=== PATIENT | male | born 1960 | race Caucasian/White ===

== ENCOUNTER 2016-04-26 11:58 | Emergency (ER) | payer OTHER ==
[~2016-04-26] VITALS: Ht 172.7 cm; Wt 102.7 kg
[~2016-04-26 11:58] MED LIST: PERC5TAB12 PO; ZOFR4TAB3 SL
[2016-04-26 12:02] VITALS: BP 130/81; PULSE 76; RESP 16; TEMP 98.1; O2SAT 97
--- NOTE | 2016-04-26 12:11 | PD ---
HPI . left forearm laceration earlier today Chief Complaint: Laceration/Skin Injury Time Seen by Provider: 12:10 Travel History International Travel<30 days: No Contact w/Intl Traveler<30days: No Traveled to known affect area: No History of Present Illness HPI 55 yr old male here after sustaining a laceration to his left forearm while installing new window in his house. He was using a razor blade when it slipped and cut his left forearm. He is here for lac repair. He admits to some pain in the area. He has not been able to stop the bleeding. A dressing was applied in the waiting area. He is up to date on his tetanus. He is accompanied by his . He has no other concerns. PFSH Past Medical History Hx Anticoagulant Therapy: No Anemia: Yes (APLASTIC) Arthritis: Yes Diminished Hearing: No Herniated Disk: Yes (C5-C6) Musculoskeletal: Yes (BULGING DISC) Immunizations Current: Yes Migraines: Yes Past Surgical History Appendectomy: Yes Joint Replacement: Yes (LEFT HIP 1997) Tonsillectomy: Yes Social History Alcohol Use: No Tobacco Use: No Substance Use: No Allergies-Medications (Allergen,Severity, Reaction): Coded Allergies: Acetaminophen (Verified Allergy, Severe, HIVES, 04/26/16) Reported Meds & Prescriptions Reported Meds & Active Scripts Active Active Prescriptions or Reported Medications Unobtainable Review of Systems General / Constitutional: No: Fever Eyes: No: Visual changes HENT: No: Headaches Cardiovascular: No: Chest Pain or Discomfort Respiratory: No: Shortness of Breath Gastrointestinal: No: Abdominal Pain Genitourinary: No: Dysuria Musculoskeletal: No: Pain Skin: Positive Other (left forearm laceration ), No Rash Neurologic: No: Weakness Psychiatric: No: Depression Endocrine: No: Polydipsia Hematologic/Lymphatic: No: Easy Bruising Physical Exam Narrative GENERAL: AAO x 3, no acute distress, Well-nourished, well-developed patient. SKIN: Warm and dry. No visible rashes or bruising. left medial forearm with 5 cm laceration to the ulnar area without any evidence of bone, tendon or vessel injury. Cut is clean without debris. HEAD: Normocephalic and atraumatic. EYES: No scleral icterus. No injection or drainage. ENT: No nasal drainage noted. Mucous membranes pink. Airway patent. NECK: Supple, trachea midline. No JVD. CARDIOVASCULAR: Regular rate and rhythm without murmurs, gallops, or rubs. RESPIRATORY: Breath sounds equal bilaterally. No accessory muscle use. No rhonchi or rales. GASTROINTESTINAL: Abdomen soft, non-tender, nondistended. EXTREMITIES: No cyanosis or edema. Full ROM Of left hand digits. Fitness Plan Coordinator strength is normal. BACK: Nontender without obvious deformity. No CVA tenderness. PSYCH: AAO x 3, normal affect. 5 cm left medial forearm (ulnar) Data Data Last Documented VS Vital Signs Date Time Temp Pulse Resp B/P Pulse Ox O2 Delivery O2 Flow Rate FiO2 04/26/16 12:02 98.1 76 16 130/81 97 Orders Lidocaine 1% Inj (50 Ml) (Xylocaine 1% I (04/26/16 12:15) [facility] Medical Decision Making Medical Screen Exam Complete: Yes Emergency Medical Condition: Yes Medical Record Reviewed: Yes Differential Diagnosis left forearm laceration Narrative Course 55 yr old male here after sustaining a laceration to his left forearm while installing new window in his house. He was using a razor blade when it slipped and cut his left forearm. He is here for lac repair. He admits to some pain in the area. He has not been able to stop the bleeding. A dressing was applied in the waiting area. He is up to date on his tetanus. He is accompanied by his . He has no other concerns. Patient seen and examined. He does have a left forearm laceration measuring 5 cm. He is up-to-date on his tetanus vaccine. The wound is clean without any foreign bodies. Laceration was repaired with 10 sutures. Patient tolerated without incident Advised removal of sutures in 7-10 days. Discussed signs of infection and need for follow-up. Advised that he will need to keep this covered at work and change dressings at least twice a day while at work, since he is outdoors. Patient verbalized understanding of instructions, questions were answered, and thanked me for their care. I advised them if their condition worsens, please return to the nearest emergency room for further care. Procedures Procedure Narrative LACERATION LOCATION: Left forearm LENGTH: 5 cm NUMBER OF STITCHES/TRESSA: 10 REPAIR: The area of the laceration was prepped with Betadine and sterilely draped. The laceration was infiltrated with 1% lidocaine. The wound was copiously irrigated and explored without evidence of foreign body, tendon injury or neurovascular injury. The wound was closed using 4-0 Prolene. This was a single layer repair. A sterile dressing was applied. The patient was advised to keep the dressing clean and dry. Patient tolerated the procedure well. Diagnosis Primary Impression: Laceration of forearm without complication Qualified Code: S51.812A - Laceration of forearm without complication, left, initial encounter Patient Instructions: Acute Wound Care (ED), General Instructions, Laceration ( ED) Additional Instructions: Please return to emergency department if your symptoms return or worsen. Follow up with your primary care provider. Take medications as prescribed. [place] for worsening signs of infection which include increased redness, increased warmth, purulent drainage, increased swelling or streaking. Keep this area covered while at work. Wash with soap and water daily. Apply topical antibiotic ointment for the next 2-3 days. While at home leave open to air. The sutures will need to be removed in 7-10 days. ( 10 sutures) If you see any signs of infection, please come in as soon as possible. Med/Other Pt SpecificInfo: No Change to Meds Scripts Unable to Obtain Active Prescriptions or Reported Meds Disposition: 01 DISCHARGE HOME Condition: Stable Oralia Palomares Apr 26, 2016 12:11
[2016-04-26] MEDS ORDERED: LIDOCAINE HCL 1% 50 ML VIAL INFIL ONE (12:15)
== END 2016-04-26 13:01 | disposition home or self-care (01) ==
LOC: PHEFT 11:58
DX: S51.812A Laceration without foreign body of left forearm, initial encounter (principal); D61.9 Aplastic anemia, unspecified; W27.8XXA Contact with other nonpowered hand tool, initial encounter; Y93.H3 Activity, building and construction; Y92.009 Unspecified place in unspecified non-institutional (private) residence as the place of occurrence of the external cause; Y99.8 Other external cause status
CPT/HCPCS: 12002

== ENCOUNTER 2018-02-11 06:49 | Inpatient (IN) ==
[2018-02-11] MEDS ORDERED: Chlorhexidine Gluconate 2% 1 Pack (2 Cloths) TOPICAL ONE (07:45)
[2018-02-11] MEDS ORDERED: Sodium Chlor 0.9% Inj 500 ML IV.CONT ONE (07:45)
[2018-02-11] MEDS ORDERED: Chlorhexidine 4% Topical 120 APPLIC/120 ML Bottle TOPICAL SCH (07:45)
[2018-02-11] MEDS ORDERED: Metoprolol Tartrate 25 MG Tablet PO ONE (07:45)
[2018-02-11] MEDS ORDERED: Sodium Chlor 0.9% Inj 40 ML, Bupivacaine Liposo PF 1.3% Inj 20 ML P-ARTICULR SCH ×2 (08:00)
[2018-02-11] MEDS ORDERED: Vancomycin Inj 1,000 MG in Sodium Chlor 0.9% Inj 250 ML IV.SIG SCH (08:00)
[2018-02-11] MEDS ORDERED: ceFAZolin 2 GM Premix Inj 2 GM/50 ML PIGGYBACK IV.SIG SCH (08:00)
[2018-02-11 08:12] LABS: Bilirubin,Urine Negative (Negative); Clarity,Urine Clear (Clear); Color,Urine Yellow (Yellw/Straw); Glucose,Urine (UA) Negative (Negative); Leukocyte Esterase,Urine Negative (Negative); Nitrite,Urine Negative (Negative); Specific Gravity,Urine 1.024 (1.002-1.035)
[2018-02-11] MEDS ORDERED: Post-op Orders (for Pharmacy) OTHER STA (08:28)
[2018-02-11] MEDS ORDERED: HYDROmorphone PF Inj 1 MG/ML Ampul IV.PUSH PRN (08:28)
[2018-02-11] MEDS ORDERED: Bisacodyl 10 MG Supp RECTAL PRN (08:28)
[2018-02-11] MEDS ORDERED: Zolpidem Tartrate 5 MG Tablet PO PRN (08:28)
[2018-02-11] MEDS ORDERED: SODIUM CHLOR 0.9% IV.SIG SCH (08:30)
[2018-02-11] MEDS ORDERED: Tranexamic Acid Inj 3,000 MG in Sodium Chlor 0.9% Inj 100 ML P-ARTICULR SCH (08:30)
[2018-02-11] MEDS ORDERED: TRANEXAMIC ACID IV.SIG SCH (08:30)
[2018-02-11] MEDS ORDERED: Dexamethasone Inj 20 MG/5 ML Vial IV.PUSH ONE (09:00)
--- NOTE | 2018-02-11 11:47 | P.OP ---
Procedure: PREOPERATIVE DIAGNOSIS: Right hip osteoarthritis. POSTOPERATIVE DIAGNOSIS: Right hip osteoarthritis. PROCEDURE PERFORMED: Right total hip arthroplasty. SURGEON: Dr. Evaristo Alfred M.D. CAN REFORMING MACHINE OPERATOR: APRIL Schroeder. ANESTHESIA: General. ESTIMATED BLOOD LOSS: 250 mL. COMPLICATIONS: None. IMPLANTS USED: Depuy Corail femoral stem 11 [place] Gripsion Cup [] 54 Poly insert liner neutral [] 36 x 54 femoral head [] 36 mm ceramic neck length [] +8.5 JUSTIFICATION: This patient presents to the undersigned at the orthopedic clinic with chief complaints of severe Right hip pain. The pain is severe and constant and interferes with activities of daily living. The patient has failed greater than 3 months of nonoperative conservative treatment to include analgesic and nonsteroidal anti-inflammatory medications, physical therapy, cortisone injections, activity modification, weight loss, home exercise program, and use of ambulatory assistive aids. X-rays of right hip reveal severe osteoarthritis with [id number] joint space narrowing, subchondral sclerosis, subchondral cysts, osteophyte formation with subluxation. The patient was counseled on risks, benefits, and alternatives to a total hip arthroplasty. The risks were discussed, which include, but are not limited to, anesthesia, bleeding, infection, damage to nerves and blood vessels , pain, stiffness, fracture, dislocations, leg length discrepancy, failure of components, blood clots, pulmonary embolus, and even . The patient favored the benefits over the risks, did wish to proceed with surgery. PROCEDURE IN DETAIL: Written consent was obtained. The patient was identified by name, taken to the operating room and placed supine on the operating table. General anesthesia was administered. The patient was preoperative IV antibiotics. The patient right and left feet were placed in the padded traction boots. The right hip and lower extremity was then prepped and draped using isopropyl alcohol, Hibiclens solution and ChloraPrep solution. After a timeout was performed, a longitudinal incision was made over the anterior aspect of the right hip. The fascia ashwin was incised. Dissection was carried over the tensor fascia ashwin beneath the rectus femoris. After exposure of the anterior capsule, a capsulotomy incision was performed. An oscillating saw was used to perform a femoral neck cut. The osteoarthritic femoral head and neck was removed. A 10 blade scalpel was used to excise the labrum. Sequential reaming of the acetabulum was performed. Subsequently a porous-coated titanium acetabular cup was implanted in a press manner in approximately 45 degrees of abduction and 10 degrees of anteversion. There was good purchase and fixation after insertion of the acetabular cup. The cup was tested manually and noted to have excellent stability and fixation. A neutral highly cross-linked polyethylene liner was placed within the cup. The liner was impacted in place for fixation and tested for stability. Attention was turned to the femur where the leg was externally rotated, extended and adducted. The capsule was released off the undersurface of the greater trochanter to allow for elevation and lateralization of the femur. A box cutting osteotome was used to gain entrance into the intramedullary canal of the femur. This was followed by a canal finder and sequential broaching. A calcar planer to plane the calcar. A trial head and neck combination were evaluated prior to implantation of final components. With the final implants placed, the leg could achieve external rotation of 70 degrees and extension to the the ground without evidence of anterior instability or impingement. Soft tissue tension felt appropriate. Fluoroscopic imaging showed appropriate implantation of components. The Surgical wound was thoroughly irrigated with sterile saline Pulse Lavage antibiotic impregnated solution. The fascial layer was closed with #1 Vicryl suture, subcutaneous layer with 2-0 Vicryl sutures. The skin was closed with Dermabond. Sterile dressing applied. No intraoperative complications noted. Doug Porter, Physician Basting Machine Operator, Certified was present for the entire procedure to include the patient position, the procedure itself. The medical necessity of a physician culture media laboratory assistant was indicated in this case due to the complexity of the procedure. He assisted with position of the patient along with the ear itself. During the procedure he assisted with exposure and the retraction of muscle, tendon, bone, and neurovascular vessel structures. He assisted with the preparation of bone and also implantation of the prosthetic replacement. There was a surgical asst in the room that assisted with management of instruments, but was not available to assist with the surgery itself. Evaristo Espinoza MD Surgeon: Evaristo Espinoza MD
[2018-02-11] MEDS ORDERED: *Meperidine Inj 25 MG/ML Vial PERIprocedural Use ONLY ONE (12:13)
[2018-02-11] MEDS ORDERED: fentaNYL Citrate Inj 100 MCG/2 ML Ampul ONE (12:13)
[2018-02-11] MEDS ORDERED: *morphine SULFATE 10 MG/ML PERIprocedure ONLY ONE ×2 (12:32→13:07)
[2018-02-11 13:07] LABS: Hematocrit 40.1 % (39.0-51.0); Hemoglobin 13.6 gm/dL (13.0-17.0)
[2018-02-11] MEDS ORDERED: *morphine SULFATE 4 MG/ML PERIprocedure ONLY ONE (13:23)
--- NOTE | 2018-02-11 13:24 | XR ---
EXAM DATE: 02/11/2018 1:16 PM EST AGE/SEX: 57 years / Male INDICATIONS: Post op, right hip surgery. CLINICAL DATA: This is the patient's initial encounter. Patient reports that signs and symptoms have been present for 1 day and indicates a pain score of 10/10. MEDICAL/SURGICAL HISTORY: None. None. COMPARISON: No prior exams available for comparison. FINDINGS: Bilateral total hip arthroplasties. Femoral and acetabular components are appropriately positioned wi thout fracture or dislocation. Bony pelvis is otherwise intact with a prominent spur off the left gretchen um. Surgical clips projecting over the scrotum are probably related to prior vasectomy. CONCLUSION: Bilateral total hip arthroplasties are radiographically intact without fracture or dislocation. Electronically signed by: Michael Cummins MD Board Certified Radiologist 02/11/2018 1:23 PM EST
[2018-02-11] MEDS ORDERED: *HYDROmorphone PF Inj 1 MG/ML Ampul PERIprocedural Use ONLY ONE (13:39)
--- NOTE | 2018-02-11 13:42 | XR ---
EXAM DATE: 02/11/2018 1:36 PM EST AGE/SEX: 57 years / Male INDICATIONS: Right total hip arthroplasty. CLINICAL DATA: This is the patient's initial encounter. Patient reports that signs and symptoms have been present for 1 day and indicates a pain score of Nonresponsive. MEDICAL/SURGICAL HISTORY: Non-responsive. Non-responsive. COMPARISON: No prior exams available for comparison. FINDINGS: [facility] intraoperative images of the right hip shows total arthroplasty. Femoral and acetabular component s are appropriately positioned without fracture or dislocation. CONCLUSION: Appropriate postoperative appearance of the right hip status post total arthroplasty. Electronically signed by: Michael Cummins MD Board Certified Radiologist 02/11/2018 1:40 PM EST
--- NOTE | 2018-02-11 14:34 | P.DCO ---
- Physical Therapy Physical Therapy: Gait training, Safety evaluation, Transfer training, bed to chair Hip: Total hip, Protocol: Right Right Lower Extremity Weight Bearing: Weight bearing as tolerated - Nursing RN days per week: 1 Nursing: Dressing changes Dressing changes: Daily dressing change - Certification Need for Home Health services: I have seen patient Mark Geronimo on 02/11/18. My clinical findings support the need for the requested home health care services because: Need for Home Health Services: Limited ability to care for self, High risk of falls Homebound Certification: I certify that my clinical findings support that this patient is homebound because: Homebound Certification: Post-op weakness, Unsteady gait/balance
[2018-02-11] MEDS: hydroCHLOROthiazide 25 MG Tablet PO SCH (15:11)
[2018-02-11] MEDS: Multivitamin/Minerals Therapeutic Tablet PO SCH ×2 (15:12→21:54)
[2018-02-11] MEDS: Senna/Docusate Sodium 8.6/50 MG Tablet PO SCH ×2 (15:12→21:54)
[2018-02-11] MEDS: Topiramate 25 MG Tablet PO SCH (15:12)
[2018-02-11] MEDS: ceFAZolin 2 GM Premix Inj 2 GM/50 ML PIGGYBACK IV.SIG SCH ×2 (16:14→21:54)
[2018-02-12] MEDS: ceFAZolin 2 GM Premix Inj 2 GM/50 ML PIGGYBACK IV.SIG SCH (03:14)
[2018-02-12 05:06] LABS: Hematocrit 33.5 % (39.0-51.0); Hemoglobin 11.4 gm/dL (13.0-17.0)
--- NOTE | 2018-02-12 08:02 | P.PNOP ---
Subjective Interval history: pain in hip controlled. Physical Exam Vital signs: Vital Signs 02/11/18 12:00 02/11/18 12:03 02/11/18 12:15 Temperature 98.1 F Pulse Rate 82 78 76 Respiratory Rate 16 11 L Blood Pressure 143/80 H 146/83 H Pulse Oximetry 100 99 99 02/11/18 12:30 02/11/18 12:31 02/11/18 12:45 Temperature Pulse Rate 80 78 79 Respiratory Rate 20 14 13 Blood Pressure 149/75 H 146/71 H Pulse Oximetry 95 97 97 02/11/18 13:00 02/11/18 13:15 02/11/18 13:30 Temperature 98.2 F Pulse Rate 80 84 80 Respiratory Rate 16 13 10 L Blood Pressure 152/77 H 145/81 H 148/77 H Pulse Oximetry 97 93 L 93 L 02/11/18 13:45 02/11/18 14:00 02/11/18 16:00 Temperature 98.2 F Pulse Rate 84 86 83 Respiratory Rate 9 L 15 18 Blood Pressure 143/77 H 147/74 H 134/73 Pulse Oximetry 97 90 L 94 L 02/11/18 16:43 02/11/18 20:47 02/12/18 00:55 Temperature 97.8 F 99.0 F Pulse Rate 92 H 89 Respiratory Rate 18 16 17 Blood Pressure 127/73 137/65 Pulse Oximetry 94 L 96 02/12/18 03:12 Temperature 98.6 F Pulse Rate 94 H Respiratory Rate 17 Blood Pressure 125/75 Pulse Oximetry 98 Intake & Output 02/11/18 02/12/18 02/12/18 18:59 06:59 18:59 Intake Total 2045.51 / 2045.51 2030 / 2030 Output Total 500 / 500 1225 / 1225 Balance 1545.51 / 1545.51 805 / 805 Weight 103.4 kg 102.6 kg Intake: IV 1465.51 / 1465.51 1050 / 1050 LR 1000 mL Inj 1,000 ML @ 80 1000 / 1000 1000 / 1000 mls/hr IV.CONT .[id number] [facility] Rx# :[id number] Cyklokapron Inj 1,551 MG In NS 115.51 / 115.51 Inj 100 ML @ 200 mls/hr IV.SIG FORMULA MIXER [facility] Rx#:[id number] Vancomycin Inj 1,000 MG In NS 250 / 250 Inj 250 ML @ 250 mls/hr IV.SIG FORMULA MIXER [facility] Rx#:[id number] Ancef 2 GM Premix Inj 2 gm In 100 / 100 50 / 50 50 ml @ 100 mls/hr IV.SIG Q6H [facility] Rx#:[id number] Oral 480 / 480 980 / 980 Anesthesia Amount 100 / 100 Output: Urine 1225 / 1225 Estimated Blood Loss 500 / 500 Other: # Voids 1 Date of Last Bowel Movement 02/10/18 02/10/18 # Bowel Movements 0 0 Weight On Admission 103.4 kg Narrative: in bed, nad, in room dressing c/d/i neg homans thigh soft nvi Results - Labs CBC & Chem 7: 02/12/18 04:29 Laboratory Results - last 24 hr 02/11/18 02/11/18 02/11/18 07:50 07:50 07:50 Hgb Hct PT 10.0 INR 1.0 Urine Color Yellow Urine Clarity Clear Urine pH 6.0 Ur Specific [place] 1.024 Urine Protein Negative Urine Glucose (UA) Negative Urine Ketones Negative Urine Occult Blood Negative Urine Nitrate Negative Urine Bilirubin Negative Urine Urobilinogen 2.0 H Ur Leukocyte Esterase Negative Urine RBC 1 Urine WBC Less than 1 Micro UA Comment Culture not ind Ur Microscopic Review Microscopic reviewed Urine Culture Comments Culture not ind Blood Type O Positive Blood Type Recheck Required Antibody Screen Negative 02/11/18 02/12/18 12:45 04:29 Hgb 13.6 11.4 L D Hct 40.1 33.5 L PT INR Urine Color Urine Clarity Urine pH Ur Specific [place] Urine Protein Urine Glucose (UA) Urine Ketones Urine Occult Blood Urine Nitrate Urine Bilirubin Urine Urobilinogen Ur Leukocyte Esterase Urine RBC Urine WBC Micro UA Comment Ur Microscopic Review Urine Culture Comments Blood Type Blood Type Recheck Antibody Screen - Imaging Impressions Hip X-Ray 02/11/18 00:00 CONCLUSION: Appropriate postoperative appearance of the right hip status post total arthroplasty. Hip X-Ray 02/11/18 08:28 CONCLUSION: Bilateral total hip arthroplasties are radiographically intact without fracture or dislocation. Assessment and Plan - Ortho Post Op Day # 1 - Assessment and Plan s/p R JAYLEN wbat maintain dressing asa 81 d/c planning home with [facility] and pt f/up dr. edwards 2 weeks
[2018-02-12] MEDS: Multivitamin/Minerals Therapeutic Tablet PO SCH (08:28)
[2018-02-12] MEDS: Topiramate 25 MG Tablet PO SCH (08:28)
[2018-02-12] MEDS: hydroCHLOROthiazide 25 MG Tablet PO SCH (08:28)
[2018-02-12] MEDS: Senna/Docusate Sodium 8.6/50 MG Tablet PO SCH (08:29)
[2018-02-12 09:35] VITALS: RESP 18
[2018-02-12 09:48] VITALS: BP 134/66; PULSE 87; TEMP 99.8; O2SAT 97
== END 2018-02-12 12:22 | disposition home health service (06) | DRG 470 ==
LOC: HSDI 06:49 → N06 14:24
PROVIDERS: ADMIT Orthopaedic Surgery Sports Medicine; ATTEND Orthopaedic Surgery Sports Medicine
DX: M16.11 Unilateral primary osteoarthritis, right hip
CPT/HCPCS: 73502; 76000; 81001; 85014; 85018; 85610; 86850; 86900; 86901; 94150; 97110; 97116; 97163; 97166; C1776; C9290; J0690; J1170; J2175; J2250; J2270; J2405; J3010; J3370; J7050; J7120